=== PATIENT | male | born 1980 | race Two or more races ===

== ENCOUNTER → 2023-07-15 | Outpatient (CLI) | payer BC ==
[2023-07-15 06:33] LABS: Urine Bacteria None Seen /hpf (None Seen)
[2023-07-15 06:38] LABS: Urine Blood Negative /uL (Negative); Urine Clarity Clear (Clear); Urine Color Yellow (Yellow); Urine Protein, UAD TRACE (Negative); Urine Specific Gravity 1.024 (1.001-1.035); Urine Urobilinogen Normal (Negative); Urine WBC 1 /hpf (0 - 3)
[2023-07-15 06:44] LABS: Basophils # (auto) 0 10 ^3/uL (0-0.2); Basophils % (auto) 0.9 % (0.0-2.0); Eosinophils # (auto) 0.2 10 ^3/uL (0-0.8); Eosinophils % (auto) 3.5 % (0.0-7.0); Hematocrit 54.4 % (41.0-53.0); Hemoglobin 18.6 g/dL (13.5-17.5); Lymphocytes # (auto) 1.4 10 ^3/uL (0.4-5.4); Lymphocytes % (auto) 26.7 % (10.0-50.0); Mean Corpuscular Hemoglobin 30.9 pg (28.0-32.0); Mean Corpuscular Hgb Conc. 34.1 g/dL (32.0-36.0); Mean Corpuscular Volume 90.5 fL (80.0-100.0); Monocytes # (auto) 0.5 10 ^3/uL (0-1.3); Monocytes % (auto) 9.1 % (0.0-12.0); Neutrophils # (auto) 3.1 10 ^3/uL (1.6-8.6); Neutrophils % (auto) 59.8 % (37.0-80.0); Nucleated Red Blood Cells % 0.2 %; Red Blood Cells 6.01 10^6/uL (4.5-5.90); Red Cell Distribution Width 13.6 % (11.8-14.3); White Blood Cell 5.2 10^3/uL (4.4-10.8)
[2023-07-15 07:16] LABS: Prostate Specific Antigen 0.98 ng/mL (0.0-4.0)
[2023-07-15 07:17] LABS: Alanine Aminotransferase 61 U/L (7-40); Albumin 4.8 g/dL (3.2-4.8); Alkaline Phosphatase 56 U/L (46-116); Anion Gap 6 (5-15); Aspartate Aminotransferase 43 U/L (13-40); BUN/Creatinine Ratio 11.2 (10.0-20.0); Blood Urea Nitrogen 13 mg/dL (9-23); Calcium 10.5 mg/dL (8.5-10.1); Carbon Dioxide 27 mmol/L (20-30); Chloride 105 mmol/L (98-107); Cholesterol 216 mg/dL (< 200); Glucose 97 mg/dL (74-106); LDL Cholesterol 151 mg/dL (< 100); Magnesium 1.7 mg/dL (1.6-2.6); Sodium 138 mmol/L (136-145); Triglycerides 165 mg/dL (< 150)
[2023-07-15 07:18] LABS: Bilirubin, Total 1.1 mg/dL (0.2-1.0); HDL Cholesterol 42 mg/dL (40-59); Total Protein 7.5 g/dL (5.7-8.2)
[2023-07-15 07:48] LABS: Uric Acid 5.2 mg/dL (3.7-9.2)
[2023-07-15 07:50] LABS: Folate (Folic Acid) 33.15 ng/mL (>5.38)
== END | disposition home or self-care (01) ==
LOC: LAB 06:18
PROVIDERS: ATTEND Internal Medicine
DX: E11.9 Type 2 diabetes mellitus without complications (principal); K76.0 Fatty (change of) liver, not elsewhere classified; E78.5 Hyperlipidemia, unspecified; E78.1 Pure hyperglyceridemia; R86.1 Abnormal level of hormones in specimens from male genital organs; E55.0 Rickets, active; N52.9 Male erectile dysfunction, unspecified; J30.2 Other seasonal allergic rhinitis
CPT/HCPCS: 36415; 80053; 80061; 81001; 82306; 82607; 82746; 82785; 83036; 83735; 84153; 84403; 84443; 84550; 85025; 87086

== ENCOUNTER → 2024-06-14 | Outpatient (CLI) | payer BC ==
[2024-06-14 10:30] LABS: Basophils # (auto) 0 10 ^3/uL (0-0.2); Basophils % (auto) 0.7 % (0.0-2.0); Eosinophils # (auto) 0.1 10 ^3/uL (0-0.8); Eosinophils % (auto) 2.1 % (0.0-7.0); Hematocrit 51.3 % (41.0-53.0); Hemoglobin 17.3 g/dL (13.5-17.5); Lymphocytes # (auto) 1.1 10 ^3/uL (0.4-5.4); Mean Corpuscular Hemoglobin 29.4 pg (28.0-32.0); Mean Corpuscular Hgb Conc. 33.8 g/dL (32.0-36.0); Mean Corpuscular Volume 86.9 fL (80.0-100.0); Monocytes # (auto) 0.4 10 ^3/uL (0-1.3); Monocytes % (auto) 7.5 % (0.0-12.0); Neutrophils # (auto) 4.2 10 ^3/uL (1.6-8.6); Neutrophils % (auto) 70.7 % (37.0-80.0); Nucleated Red Blood Cells % 0.1 %; Platelet Count (auto) 200 10^3/uL (140-450); Red Cell Distribution Width 14.4 % (11.8-14.3); White Blood Cell 5.9 10^3/uL (4.4-10.8)
[2024-06-14 10:32] LABS: Urine Blood Negative /uL (Negative); Urine Clarity Clear (Clear); Urine Color Yellow (Yellow); Urine Protein, UAD 1+ (Negative); Urine Specific Gravity 1.025 (1.001-1.035); Urine Urobilinogen Normal (Negative); Urine pH 5.5 (5.0-9.0)
[2024-06-14 11:06] LABS: Alanine Aminotransferase 94 U/L (7-40); Albumin 4.8 g/dL (3.2-4.8); Alkaline Phosphatase 45 U/L (46-116); Anion Gap 7 (5-15); Aspartate Aminotransferase 73 U/L (13-40); BUN/Creatinine Ratio 10.2 (10.0-20.0); Blood Urea Nitrogen 13 mg/dL (9-23); Calcium 10.6 mg/dL (8.7-10.4); Carbon Dioxide 25 mmol/L (20-31); Chloride 105 mmol/L (98-107); Cholesterol 117 mg/dL (< 200); Glucose 93 mg/dL (74-106); HDL Cholesterol 37 mg/dL (40-59); LDL Cholesterol 60 mg/dL (< 100); Potassium 4.8 mmol/L (3.5-5.1); Sodium 137 mmol/L (136-145); Total Protein 7.1 g/dL (5.7-8.2); Triglycerides 120 mg/dL (< 150)
[2024-06-14 11:07] LABS: Bilirubin, Total 0.6 mg/dL (0.2-1.0); Magnesium 1.5 mg/dL (1.6-2.6)
[2024-06-14 11:55] LABS: Uric Acid 3.9 mg/dL (3.7-9.2)
== END | disposition home or self-care (01) ==
LOC: LAB 10:02
PROVIDERS: ATTEND Internal Medicine
DX: E78.1 Pure hyperglyceridemia (principal); D45 Polycythemia vera; J30.2 Other seasonal allergic rhinitis; K21.00 Gastro-esophageal reflux disease with esophagitis, without bleeding
CPT/HCPCS: 36415; 80053; 80061; 81003; 82306; 82607; 83036; 83735; 84443; 84550; 85025; 87086

== ENCOUNTER 2024-07-21 08:50 | Day surgery (SDC) | payer BC ==
[2024-07-18 08:57] LABS: Basophils # (auto) 0 10 ^3/uL (0-0.2); Basophils % (auto) 0.9 % (0.0-2.0); Eosinophils # (auto) 0.1 10 ^3/uL (0-0.8); Eosinophils % (auto) 2.1 % (0.0-7.0); Hematocrit 49.2 % (41.0-53.0); Hemoglobin 16.4 g/dL (13.5-17.5); Lymphocytes # (auto) 0.9 10 ^3/uL (0.4-5.4); Lymphocytes % (auto) 16.9 % (10.0-50.0); Mean Corpuscular Hemoglobin 29.6 pg (28.0-32.0); Mean Corpuscular Hgb Conc. 33.4 g/dL (32.0-36.0); Mean Corpuscular Volume 88.7 fL (80.0-100.0); Monocytes # (auto) 0.4 10 ^3/uL (0-1.3); Monocytes % (auto) 8.3 % (0.0-12.0); Neutrophils # (auto) 3.7 10 ^3/uL (1.6-8.6); Neutrophils % (auto) 71.8 % (37.0-80.0); Nucleated Red Blood Cells % 0.1 %; Platelet Count (auto) 201 10^3/uL (140-450); Red Blood Cells 5.55 10^6/uL (4.5-5.90); Red Cell Distribution Width 14.8 % (11.8-14.3); White Blood Cell 5.2 10^3/uL (4.4-10.8)
[2024-07-18 09:14] LABS: INR 1.24 (0.9-1.15); Partial Thromboplastin Time 26.1 SEC (24.5-34.5); Prothrombin Time 12.9 sec (9.3-11.8)
[2024-07-18 09:19] LABS: Albumin 4.7 g/dL (3.2-4.8); Alkaline Phosphatase 46 U/L (46-116); Anion Gap 6 (5-15); BUN/Creatinine Ratio 8.5 (10.0-20.0); Bilirubin, Total 0.9 mg/dL (0.2-1.0); Blood Urea Nitrogen 11 mg/dL (9-23); Carbon Dioxide 27 mmol/L (20-31); Chloride 105 mmol/L (98-107); Glucose 88 mg/dL (74-106); Sodium 138 mmol/L (136-145); Total Protein 7.1 g/dL (5.7-8.2)
[2024-07-18 09:20] LABS: Alanine Aminotransferase 135 U/L (7-40); Aspartate Aminotransferase 98 U/L (13-40); Calcium 10.6 mg/dL (8.7-10.4)
[~2024-07-21] VITALS: Ht 172.7 cm; Wt 115.7 kg
[~2024-07-21 08:50] MED LIST: BACL20TA PO; FENO145T27 OR; GABA-1308 PO; PANT40T PO; ROSU10TA16 PO; TAMS0.4C39 PO
[2024-07-21] MEDS: MIDAZOLAM HCL 2MG/2ML 2ml VIAL (1mg/ml) ONE ×2 (10:10→10:24)
[2024-07-21] MEDS: fentaNYL CITRATE 100 MCG/2 ML VL ONE (10:10)
[2024-07-21 10:35] VITALS: TEMP 97
--- NOTE | 2024-07-21 10:35 | DVHNC2 ---
Procedure - PROCEDURE DATE: 07/21/2024 PROCEDURE PERFORMED BY: RENNY AUGUSTIN MD REFERRING PROVIDER: JULIOCESAR PHILIP MD PROCEDURE PERFORMED: 1. ESOPHAGOGASTRODUODENOSCOPY WITH MODERATE SEDATION 2. ESOPHAGOGASTRODUODENOSCOPY WITH BIOPSY 3. COLONOSCOPY WITH MODERATE SEDATION PRE-PROCEDURE DIAGNOSIS: 1. COLON CANCER SCREENING 2. DYSPHAGIA POSTPROCEDURE DIAGNOSIS: 1. MILD EROSIVE ESOPHAGITIS, Z-LINE AT 40 CM 2. MILD EROSIVE GASTRITIS, 3. SEVERAL GASTRIC POLYPS 4. 2 CM HIATAL HERNIAS INDICATION FOR PROCEDURE: THE PATIENT IS A 44-YEAR-OLD MALE WHO PRESENTS FOR OUTPATIENT ENDOSCOPY FOR DYSPHAGIA AND A FAMILY HISTORY OF THROAT CANCER WELL FOR COLON CANCER SCREENING, AVERAGE RISK MEDICATIONS USED: 7 MG OF VERSED AND 100 MCG OF FENTANYL IV WAS GIVEN IN INCREMENTAL DOSES DETAILS OF THE PROCEDURE: INFORMED CONSENT WAS OBTAINED AFTER RISKS BENEFITS AND ALTERNATIVES WERE DISCUSSED AT LENGTH WITH THE PATIENT. THE PATIENT GAVE CONSENT TO THE PROCEDURE WELL THE MEDICATION USED FOR SEDATION. THE PATIENT WAS PLACED IN THE LEFT LATERAL DECUBITUS POSITION. DIGITAL RECTAL EXAM SHOWED SMALL INTERNAL HEMORRHOIDS. AN OLYMPUS ENDOSCOPE WAS INSERTED INTO THE OROPHARYNX AND ADVANCED INTO THE ESOPHAGUS THEN INTO THE STOMACH AND THEN INTO THE DUODENAL BULB AND DUODENUM. THE DUODENAL BULB AND DUODENUM WERE NORMAL. THE SCOPE WAS THEN WITHDRAWN. THE STOMACH SHOWED MILD GASTRITIS AND BIOPSIES WERE TAKEN. THE SCOPE WAS THEN WITHDRAWN. RETROFLEXION SHOWED SEVERAL SMALL GASTRIC POLYPS AND A 2 CM HIATAL HERNIA. RETAINED SECRETIONS WERE WASHED OR SUCTIONED OFF. BIOPSIES WERE TAKEN OF SEVERAL OF THE POLYPS. THEY WERE NOT COMPLETELY REMOVED. THE SCOPE WAS THEN WITHDRAWN. THE PATIENT HAD A Z-LINE AT 40 CM. MILD EROSIVE ESOPHAGITIS WAS NOTED. THE SCOPE WAS THEN WITHDRAWN AND PROCEDURE COMPLETED THE PATIENT TOLERATED THE PROCEDURE WELL. THE PATIENT REMAINED IN THE LEFT LATERAL DECUBITUS POSITION. DIGITAL RECTAL EXAM SHOWED SMALL INTERNAL AND EXTERNAL HEMORRHOIDS. AN OLYMPUS VARIABLE TORSION PEDIATRIC COLONOSCOPE WAS INSERTED INTO THE RECTUM AND ADVANCED TO THE CECUM. THE CECUM WAS IDENTIFIED BY THE ILEOCECAL VALVE AND THE APPENDICEAL ORIFICE. THE SCOPE WAS THEN WITHDRAWN. THE PREP WAS GOOD WITH SMALL AMOUNTS OF STOOL. BOSTON BOWEL PREP SCORE OF EIGHT WAS NOTED. THERE WERE NO LARGE POLYPS, MASSES, STRICTURES, OR ARTERIOVENOUS MALFORMATION SEEN. THE PATIENT HAD MILD LEFT-SIDED DIVERTICULOSIS. RETROFLEXION SHOWED 1+ INTERNAL HEMORRHOIDS. THE PATIENT TOLERATED THE PROCEDURE WELL START TIME: 1024 CECUM TIME: 1025 END TIME: 1031 IMPRESSION: 1. MILD EROSIVE ESOPHAGITIS, A 2 CM HIATAL HERNIA, AND MILD EROSIVE GASTRITIS SEEN ON ENDOSCOPY 2. SEVERAL SMALL GASTRIC POLYPS BIOPSIED IN THE STOMACH 3. MILD DIVERTICULOSIS SEEN IN THE COLON 4. SMALL INTERNAL AND EXTERNAL HEMORRHOIDS RECOMMENDATIONS: 1. FOLLOW UP WITH ME IN CLINIC FOR PATHOLOGY RESULTS 2. HIGH-FIBER DIET 3. PATIENT SHOULD BE ON A PROTON PUMP INHIBITOR DAILY, 30 MINUTES BEFORE BREAKFAST 4. REPEAT COLONOSCOPY IN 10 YEARS UNLESS OTHERWISE INDICATED BY SYMPTOMS OR FAMILY HISTORY 5. MEDICAL MANAGEMENT OF HEMORRHOIDS 6. IF THE POLYPS IN THE STOMACH ARE ADENOMATOUS PATIENT WILL NEED REPEAT ENDOSCOPY INCOMPLETE REMOVAL 7. CONSIDER FURTHER WORKUP FOR DYSPHAGIA 8. ANTI-REFLUX PRECAUTIONS I WOULD LIKE TO THANK DR. PHILIP FOR THIS REFERRAL RENNY AUGUSTIN MD July 21, 2024 10:35
[2024-07-21 11:05] VITALS: BP 148/82; PULSE 88; RESP 20; O2SAT 95
== END 2024-07-21 11:15 | disposition home or self-care (01) ==
LOC: GI 08:50
PROVIDERS: ATTEND Specialist
DX: Z12.11 Encounter for screening for malignant neoplasm of colon (principal); R13.10 Dysphagia, unspecified; K21.00 Gastro-esophageal reflux disease with esophagitis, without bleeding; K29.50 Unspecified chronic gastritis without bleeding; K44.9 Diaphragmatic hernia without obstruction or gangrene; K31.7 Polyp of stomach and duodenum; K64.8 Other hemorrhoids; K57.30 Diverticulosis of large intestine without perforation or abscess without bleeding; Z88.1 Allergy status to other antibiotic agents; Z79.899 Other long term (current) drug therapy; Z98.890 Other specified postprocedural states
CPT/HCPCS: 36415; 43239; 45378; 80053; 85025; 85610; 85730; 88305; 88312; 88342; J2250; J3010; 99152